=== PATIENT | female | born 1955 | race American Indian/Alaskan Native ===

== ENCOUNTER 2016-09-04 08:00 | Outpatient (CLI) | payer MEDICAID ==
--- NOTE | 2016-09-04 10:05 | Mammography Report ---
BILATERAL MAMMOGRAM with CAD: HISTORY:Cancer screening. Comparison study is dated September 02, 2015. FINDINGS: The breasts are almost entirely fat (<25% glandular). No mass, distortion, suspicious calcification, or skin change is seen. IMPRESSION: Negative mammogram. There is no mammographic evidence of malignancy. Stable bilateral benign calcifications are noted. RECOMMENDATION: Follow-up per ACS guidelines. BI-RADS CATEGORY: 1 = Negative ACR BI-RADS MAMMOGRAPHIC CODES: 0 = Needs additional imaging evaluation; 1 = Negative; 2 = Benign; 3 = Probably benign; 4 = Suspicious; 5 = Malignant; 6 = Known biopsy-proven malignancy COMMENT: 1. Dense breast tissue, i.e., adenosis, fibrocystic changes, etc., may obscure an underlying neoplasm. 2. Approximately 10% of cancers are not detected with mammography. 3. A negative mammography report should not delay biopsy if a clinically suspicious mass is present. COMMENT: Patient follow-up letters are generated in [employer].
== END 2016-09-04 08:01 | disposition home or self-care (01) ==
LOC: MAMMO 08:00
PROVIDERS: ATTEND Family Medicine
DX: Z12.31 Encounter for screening mammogram for malignant neoplasm of breast (principal)
CPT/HCPCS: 77067; G0202

== ENCOUNTER 2017-04-10 16:33 | Emergency (ER) | payer MEDICAID ==
--- NOTE | 2017-04-10 17:53 | XRay Report ---
FINAL REPORT EXAM: XR KNEE 3V LT HISTORY: pain/swelling/fall TECHNIQUE: Left knee three views PRIORS: None. FINDINGS: There is tricompartmental joint space narrowing. Calcified osteochondral bodies are present within the joint space. No evidence for joint effusion. Marginal distal femoral and tibial osteophytes are present. There osteophyte at the superior aspect of the patella. No acute fracture identified. No dislocation seen. 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
--- NOTE | 2017-04-10 22:37 | Emergency Department Report ---
HPI - General Chief Complaint: Extremity Injury, Lower Time Seen by Provider: 04/10/17 22:27 - HPI HPI: This is a 62 y o female who presents to the ED complaining of left knee pain 2 days. Patient states she has chronic left knee pain but is worsening in the past 2 days. Patient states she fell in the left knee Earlier Today and Caught Her Fall with the bed. Patient denies his head or any loss of consciousness. Physician says she is able to walk but pain with weightbearing on that left leg. She denies fever/chills/shortness of breath/chest pain/vomiting or abdominal pain ED Past Medical Hx - Past Medical History Hx Arthritis: Yes Hx Asthma: Yes Additional medical history: DVT. High Cholesterol - Surgical History Additional Surgical History: BKA R leg - Social History Smoking Status: Never Smoker Substance Use Type: None - Medications Home Medications: Home Medications Medication Instructions Recorded Confirmed Last Taken Type Simvastatin [Zocor TAB] 20 mg PO QHS 01/25/15 02/03/16 1 Day Ago History Warfarin [Coumadin] 7.5 mg PO QDAY 01/25/15 02/03/16 1 Day Ago History Cefuroxime [Ceftin] 250 mg PO Q12H #10 tablet 02/03/16 Unknown Rx Acetaminophen with Codeine 1 tab PO Q6HR PRN #6 tablet 04/10/17 Unknown Rx [Acetaminophen-Codeine #4 TAB] ED Review of Systems ROS: Stated complaint: LEFT KNEE PAIN Other details as noted in HPI Constitutional: denies: chills, fever Eyes: denies: eye pain, eye discharge, vision change ENT: denies: ear pain, throat pain Respiratory: denies: cough, shortness of breath, wheezing Cardiovascular: denies: chest pain, palpitations Endocrine: no symptoms reported Gastrointestinal: denies: abdominal pain, nausea, diarrhea Genitourinary: denies: urgency, dysuria, discharge Musculoskeletal: denies: back pain, joint swelling, arthralgia Skin: denies: rash, lesions Neurological: denies: headache, weakness, paresthesias Psychiatric: denies: anxiety, depression Hematological/Lymphatic: denies: easy bleeding, easy bruising Physical Exam - Physical Exam Vital Signs: Vital Signs 04/10/17 16:44 Temperature 98.3 F Pulse Rate 93 H Respiratory 16 Rate Blood Pressure 133/80 O2 Sat by Pulse 99 Oximetry Physical Exam: GENERAL: Alert and oriented x3, no apparent distress, Normal Gait, atraumatic. HEAD: Head is normocephalic and a-traumatic. LUNGS: Symetrical with respiration, No wheezing, no rales or crackles, CTAB. HEART: S1, S2 present, regular rate and rhythm without murmur, no rubs, no gallops. Non tender to palpation ABDOMEN: No organomegaly was noted,Positive bowel sounds, soft, and non- distended. . Nontender to palpation on all Quadrants, NO CVA tenderness. BACK: Full range of motion, no spinal tenderness, nontender to palpation. EXTREMITIES/MUSCULOSKELETAL: No cyanosis, clubbing, rash, lesions or edema. Full ROM bilaterally. LE Pulses 2+ bilaterally. LE 5+ strength, straight leg raise negative bilaterally. Demetrice sign negative, 1+ edema of the left ankle. Right leg prostatic NEUROLOGIC: The patient is cooperative with no focal neurologic deficits. Cranial nerves II through XII are grossly intact. Normal speech. Normal sensation in bilateral upper and lower extremities, PSYCHIATRIC: Mood is congruent with affect, denies suicidal or homicidal ideations. SKIN: Warm and dry, No lesions, No ulceration or induration present. ED Course Vital Signs 04/10/17 16:44 Temperature 98.3 F Pulse Rate 93 H Respiratory 16 Rate Blood Pressure 133/80 O2 Sat by Pulse 99 Oximetry ED Medical Decision Making - Radiology Data Radiology results: report reviewed FINAL REPORT EXAM: XR KNEE 3V LT HISTORY: pain/swelling/fall TECHNIQUE: Left knee three views PRIORS: None. FINDINGS: There is tricompartmental joint space narrowing. Calcified osteochondral bodies are present within the joint space. No evidence for joint effusion. Marginal distal femoral and tibial osteophytes are present. There osteophyte at the superior aspect of the patella. No acute fracture identified. No dislocation seen. 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 Transcribed By: MERCEDES Dictated By: JULI WESTBROOK MD Electronically Authenticated By: JULI WESTBROOK MD Signed Date/Time: 04/10/17 1351 - Medical Decision Making 62-year-old female with right arthritic knee pain. ED course: Patient received pain medication ED Discussed x-ray report with patient. X-ray report -reported as above Vital signs normal patient is in no acute distress. Discussed the patient will follow up with the primary care physician. Patient states she understands instructions given follow-up. Critical care attestation.: If time is entered above; I have spent that time in minutes in the direct care of this critically ill patient, excluding procedure time. ED Disposition Clinical Impression: Chronic knee pain Qualifiers: Laterality: left Qualified Code(s): M25.562 - Pain in left knee DJD (degenerative joint disease) of knee Qualifiers: Osteoarthritis type: unspecified Laterality: left Qualified Code(s): M17.12 - Unilateral primary osteoarthritis, left knee Disposition: - TO HOME OR SELFCARE Is pt being admited?: No Does the pt Need Aspirin: No Condition: Stable Instructions: Arthralgia (ED), Hinged Knee Brace (ED) Additional Instructions: f/u with your primary care physician. Prescriptions: Acetaminophen with Codeine [Acetaminophen-Codeine #4 TAB] 1 tab PO Q6HR PRN #6 tablet PRN Reason: Pain Referrals: ALDAIR NASH MD [Primary Care Provider] - 3-5 Days Forms: Work/School Release Form(ED) Time of Disposition: 23:25
[2017-04-10] MEDS ORDERED: NAPROSYN PO ONE (23:01)
[2017-04-11 00:58] VITALS: BP 138/91
== END 2017-04-11 00:56 | disposition home or self-care (01) ==
LOC: ED 16:33
DX: M17.12 Unilateral primary osteoarthritis, left knee (principal); M25.562 Pain in left knee; J45.909 Unspecified asthma, uncomplicated; E78.00 Pure hypercholesterolemia, unspecified; Z79.01 Long term (current) use of anticoagulants; Z88.8 Allergy status to other drugs, medicaments and biological substances
CPT/HCPCS: 99283

== ENCOUNTER 2017-08-05 10:27 | Outpatient (CLI) | payer MEDICAID ==
[2017-08-05 10:46] LABS: Hematocrit 41.1 % (30.3-42.9); Hemoglobin 13.8 gm/dl (10.1-14.3); Mean Corpuscular HGB Conc 34 % (30-34); Mean Corpuscular Hemoglobin 28 pg (28-32); Mean Corpuscular Volume 84 fl (79-97); Platelet Count 282 K/mm3 (140-440); Red Blood Count 4.89 M/mm3 (3.65-5.03); Red Cell Distribution Width 14.2 % (13.2-15.2)
[2017-08-05 10:55] LABS: INR 2.04 (0.87-1.13)
[2017-08-05 10:56] LABS: Partial Thromboplastin Time 46.8 Sec. (24.2-36.6)
[2017-08-05 11:16] LABS: Alanine Aminotransferase 13 units/L (7-56); Albumin 4.1 g/dL (3.9-5); BUN/Creatinine Ratio 18; Blood Urea Nitrogen 14 mg/dL (7-17); Calcium 9.2 mg/dL (8.4-10.2); Chol/HDL Ratio 2.83 %; HDL Cholesterol 54 mg/dL (40-59); Hemolysis Index 13; LDL Cholesterol,Direct 80 mg/dL (50-130)
== END 2017-08-05 10:28 | disposition home or self-care (01) ==
LOC: LAB 10:27
PROVIDERS: ATTEND Internal Medicine
DX: J45.901 Unspecified asthma with (acute) exacerbation (principal); Z79.01 Long term (current) use of anticoagulants; Z79.899 Other long term (current) drug therapy
CPT/HCPCS: 36415; 80053; 80061; 84436; 84443; 85027; 85610; 85730

== ENCOUNTER 2017-09-04 07:42 | Outpatient (CLI) | payer MEDICAID ==
--- NOTE | 2017-09-04 08:28 | Mammography Report ---
Bilateral mammogram: Compared to 09/02/15. CAD study utilized. Findings: Predominance it was tissue bilaterally. No mass or microcalcification. Benign axilla. Impression: Benign findings. Annual followup recommended. BI-RADS CATEGORY: 2 = Benign ACR BI-RADS MAMMOGRAPHIC CODES: 0 = Needs additional imaging evaluation; 1 = Negative; 2 = Benign; 3 = Probably benign; 4 = Suspicious; 5 = Malignant; 6 = Known biopsy-proven malignancy COMMENT: 1. Dense breast tissue, i.e., adenosis, fibrocystic changes, etc., may obscure an underlying neoplasm. 2. Approximately 10% of cancers are not detected with mammography. 3. A negative mammography report should not delay biopsy if a clinically suspicious mass is present. COMMENT: Patient follow-up letters are generated in [employer].
== END 2017-09-04 07:43 | disposition home or self-care (01) ==
LOC: MAMMO 07:42
PROVIDERS: ATTEND Physician Assistant
DX: Z12.31 Encounter for screening mammogram for malignant neoplasm of breast (principal)
CPT/HCPCS: 77067

== ENCOUNTER 2017-12-13 22:37 | Emergency (ER) | payer MEDICAID ==
[2017-12-14 03:19] LABS: Basophils % (Auto) 0.6 % (0.0-1.8); Eosinophils # (Auto) 0.3 K/mm3 (0.0-0.4); Eosinophils % (Auto) 5.8 % (0.0-4.3); Hematocrit 40.1 % (30.3-42.9); Hemoglobin 13.3 gm/dl (10.1-14.3); Lymphocytes # (Auto) 1.7 K/mm3 (1.2-5.4); Lymphocytes % (Auto) 30.3 % (13.4-35.0); Mean Corpuscular HGB Conc 33 % (30-34); Mean Corpuscular Hemoglobin 29 pg (28-32); Mean Corpuscular Volume 87 fl (79-97); Monocytes # (Auto) 0.5 K/mm3 (0.0-0.8); Monocytes % (Auto) 8.5 % (0.0-7.3); Platelet Count 282 K/mm3 (140-440); Red Blood Count 4.64 M/mm3 (3.65-5.03); Red Cell Distribution Width 14.2 % (13.2-15.2)
[2017-12-14 03:35] LABS: BUN/Creatinine Ratio 11; Blood Urea Nitrogen 9 mg/dL (7-17); Calcium 9.2 mg/dL (8.4-10.2); Hemolysis Index 5
[2017-12-14 03:37] LABS: INR 1.55 (0.87-1.13)
--- NOTE | 2017-12-14 09:55 | Emergency Department Report ---
ED General Adult HPI - General Chief complaint: Extremity Injury, Lower Stated complaint: SWELLING IN LEFT LEG Time Seen by Provider: 12/14/17 09:54 Source: patient, RN notes reviewed Mode of arrival: Ambulatory Limitations: No Limitations - History of Present Illness Initial comments: This is a 62-year-old female who is unknown to this provider previously, history of lower extremity DVT, currently on Coumadin, 7.5 mg daily, history of right lower extremity below-knee amputation. Presented to the ER with nontraumatic lower extremity left swelling, and some pressure. It is constant, does not radiate anywhere, and has no exacerbating or relieving factors. She denies headache, neck pain, chest pain, abdominal pain, shortness of breath. She denies dietary indiscretions and reports compliance with her anticoagulation. She reports that a few weeks ago, her Coumadin level was decreased to 5 mg daily for a few days, then increased to 7.5 mg daily. She denies chest pain, shortness of breath, recent travel, recent immobilization , recent surgery, recent . -: Gradual Location: left, lower extremity Radiation: non-radiation Improves with: none Worsens with: none Associated Symptoms: other (as per history of present illness). denies: confusion, chest pain, cough, diaphoresis, fever/chills, headaches, loss of appetite, malaise, nausea/vomiting, rash, seizure, shortness of breath, syncope , weakness - Related Data Home Medications Medication Instructions Recorded Confirmed Last Taken Warfarin [Coumadin] 7.5 mg PO QDAY 01/25/15 12/14/17 1 Day Ago ~12/25/15 Allergies Allergy/AdvReac Type Severity Reaction Status Date / Time heparin Allergy Unknown Verified 09/04/16 08:01 ED Review of Systems ROS: Stated complaint: SWELLING IN LEFT LEG Other details as noted in HPI Comment: All other systems reviewed and negative ED Past Medical Hx - Past Medical History Hx Arthritis: Yes Hx Asthma: Yes Additional medical history: DVT. High Cholesterol - Surgical History Additional Surgical History: BKA R leg, Hysterectomy - Social History Smoking Status: Never Smoker Substance Use Type: None - Medications Home Medications: Home Medications Medication Instructions Recorded Confirmed Last Taken Type Warfarin [Coumadin] 7.5 mg PO QDAY 01/25/15 12/14/17 1 Day Ago History ~12/25/15 ED Physical Exam - General Limitations: No Limitations General appearance: alert, in no apparent distress - Head Head exam: Present: atraumatic, normocephalic - Eye Eye exam: Present: normal appearance, EOMI. Absent: nystagmus - ENT ENT exam: Present: normal exam, normal orophraynx, mucous membranes moist, normal external ear exam - Neck Neck exam: Present: normal inspection, full ROM - Respiratory Respiratory exam: Present: normal lung sounds bilaterally. Absent: respiratory distress - Cardiovascular Cardiovascular Exam: Present: regular rate, normal rhythm, normal heart sounds. Absent: bradycardia, tachycardia, irregular rhythm, systolic murmur, diastolic murmur, rubs, gallop - GI/Abdominal GI/Abdominal exam: Present: soft, normal bowel sounds. Absent: distended, tenderness, guarding, rebound, rigid, pulsatile mass - Extremities Exam Extremities exam: Present: normal inspection, normal capillary refill, pedal edema, other (status post right lower extremity below-knee amputation. 2+ pulses noted in the left lower extremity. 1+ edema noted in the left lower extremity. Compartments soft. There is no palpable cord.). Absent: calf tenderness - Back Exam Back exam: Present: normal inspection, full ROM. Absent: paraspinal tenderness , vertebral tenderness - Neurological Exam Neurological exam: Present: alert, oriented X3, CN II-XII intact, normal gait, other (Extraocular movements intact. Tongue midline. No facial droop. Facial sensation intact to light touch in the V1, V2, V3 distribution bilaterally. 5 and 5 strength in 4 extremities.. Sensation is intact to light touch in 4 extremities.). Absent: motor sensory deficit - Psychiatric Psychiatric exam: Present: normal affect, normal mood - Skin Skin exam: Present: warm, dry, intact, normal color. Absent: rash ED Course Vital Signs 12/14/17 12/14/17 02:13 08:01 Temperature 98.4 F Pulse Rate 71 Respiratory 20 18 Rate Blood Pressure 129/77 O2 Sat by Pulse 98 Oximetry ED Medical Decision Making - Lab Data Result diagrams: 12/14/17 02:38 12/14/17 02:38 Vital Signs 12/14/17 12/14/17 02:13 08:01 Temperature 98.4 F Pulse Rate 71 Respiratory 20 18 Rate Blood Pressure 129/77 O2 Sat by Pulse 98 Oximetry Lab Results 12/14/17 12/14/17 12/14/17 Range/Units 02:38 02:38 02:38 WBC 5.7 (4.5-11.0) K/mm3 RBC 4.64 (3.65-5.03) M/mm3 Hgb 13.3 (10.1-14.3) gm/dl Hct 40.1 (30.3-42.9) % MCV 87 (79-97) fl MCH 29 (28-32) pg MCHC 33 (30-34) % RDW 14.2 (13.2-15.2) % Plt Count 282 (140-440) K/mm3 Lymph % (Auto) 30.3 (13.4-35.0) % [place] % (Auto) 8.5 H (0.0-7.3) % Eos % (Auto) 5.8 H (0.0-4.3) % Baso % (Auto) 0.6 (0.0-1.8) % Lymph # 1.7 (1.2-5.4) K/mm3 [place] # 0.5 (0.0-0.8) K/mm3 Eos # 0.3 (0.0-0.4) K/mm3 Baso # 0.0 (0.0-0.1) K/mm3 Seg Neutrophils % 54.8 (40.0-70.0) % Seg Neutrophils # 3.1 (1.8-7.7) K/mm3 PT 19.5 H (12.2-14.9) Sec. INR 1.55 H (0.87-1.13) APTT 37.0 H (24.2-36.6) Sec. Sodium 144 (137-145) mmol/L Potassium 3.9 (3.6-5.0) mmol/L Chloride 103.8 (98-107) mmol/L Carbon Dioxide 28 (22-30) mmol/L Anion Gap 16 mmol/L BUN 9 (7-17) mg/dL Creatinine 0.8 (0.7-1.2) mg/dL Estimated GFR > 60 ml/min BUN/Creatinine Ratio 11 % Glucose 95 (65-100) mg/dL Calcium 9.2 (8.4-10.2) mg/dL - Radiology Data Radiology results: report reviewed, image reviewed LIVE [facility] Female : 1955 [facility]# [id number] 12/14/17 09:45 - Radiology Dept. Note by WILLIAN COON [facility] Num: [id number] : 1955 Patient Age: 62 VASCULAR LAB.PRELIMINARY REPORT. LLE VENOUS DUPLEX DONE. NO EVIDENCE OF DVT/SVT IN VESSELS VISUALIZED. Initialized on 12/14/17 09:45 - END OF NOTE - Medical Decision Making Differential diagnosis, including but not limited to: DVT, dependent edema, Casper's cysts Assessment and plan: 62-year-old female with painless left lower extremity swelling, therapeutic INR, no evidence of compartment syndrome or arterial insufficiency, physical exam unremarkable, DVT study is negative, laboratory studies unremarkable with the exception of slightly subtherapeutic INR. Patient 's Coumadin will be increased to 10 mg daily for the next 3 days, and then she' ll be instructed to follow-up with her outpatient primary care doctor for INR recheck. Critical care attestation.: If time is entered above; I have spent that time in minutes in the direct care of this critically ill patient, excluding procedure time. ED Disposition Clinical Impression: Subtherapeutic international normalized ratio (INR), Left leg swelling Disposition: DC-01 TO HOME OR SELFCARE Is pt being admited?: No Does the pt Need Aspirin: No Condition: Stable Instructions: Elevated INR (ED) Additional Instructions: Increase Coumadin to 10 mg daily for the next 3 days. Then resume 7.5 mg daily. Follow-up with your primary care doctor within the next 3-5 days for INR recheck. Return to the ER right away with new pain, worsened pain, migration of pain, fevers, chills, lethargy, irritability, projectile vomiting, change in mental status, confusion, inability to tolerate liquid feeds. Referrals: PRIMARY CARE, [Primary Care Provider] - 3-5 Days [facility] [Provider Group] - 3-5 Days
[2017-12-14 11:23] VITALS: BP 121/68
== END 2017-12-14 11:22 | disposition home or self-care (01) ==
LOC: ED 22:37
DX: M79.89 Other specified soft tissue disorders (principal); R79.1 Abnormal coagulation profile; J45.909 Unspecified asthma, uncomplicated
CPT/HCPCS: 36415; 80048; 85025; 85610; 85730

== ENCOUNTER 2018-09-10 08:52 | Outpatient (CLI) | payer MEDICAID ==
--- NOTE | 2018-09-10 12:44 | Mammography Report ---
BILATERAL DIGITAL SCREENING MAMMOGRAM with CAD: 09/10/18 08:52:00 CLINICAL: Routine screening. COMPARISON:09/04/17 FINDINGS: The breasts are almost entirely fatty. A left outer asymmetry identified only on an exaggerated CC view requires additional imaging.No architectural distortion or suspicious calcifications.The right breast is negative. IMPRESSION: Left asymmetry requiring further workup. BI-RADS CATEGORY: 0 -- Additional Imaging Evaluation Required RECOMMENDATION: Recall for a left exaggerated CC spot compression view and left breast ultrasound if needed. ACR BI-RADS MAMMOGRAPHIC CODES: 0 = Needs additional imaging evaluation; 1 = Negative; 2 = Benign; 3 = Probably benign; 4 = Suspicious; 5 = Malignant; 6 = Known biopsy-proven malignancy COMMENT: 1. Dense breast tissue, i.e., adenosis, fibrocystic changes, etc., may obscure an underlying neoplasm. 2. Approximately 10% of cancers are not detected with mammography. 3. A negative mammography report should not delay biopsy if a clinically suspicious mass is present. COMMENT: Patient follow-up letters are generated via our [employer] application.
== END 2018-09-10 08:53 | disposition home or self-care (01) ==
LOC: MAMMO 08:52
PROVIDERS: ATTEND Physician Assistant
DX: Z12.31 Encounter for screening mammogram for malignant neoplasm of breast (principal); J45.909 Unspecified asthma, uncomplicated; Z90.710 Acquired absence of both cervix and uterus; M19.90 Unspecified osteoarthritis, unspecified site
CPT/HCPCS: 77067

== ENCOUNTER 2018-10-23 10:17 | Outpatient (CLI) | payer MEDICAID ==
--- NOTE | 2018-10-23 12:31 | Mammography Report ---
Spot compression and sonographic exam of ill-defined density lower left axilla: Findings: There is persistence of ill-defined density interspersed with adipose tissue noted lower left axilla. No calcifications seen. Measures approximately 2.3 cm in diameter. Sonographic examination reveals mixed echogenic density with central adipose tissue without color flow at lower left axilla at 10 cm from nipple at the approximate 1:00 position measuring 1.3 cm in maximum diameter. Impression: Probably benign density predominantly containing adipose tissue. May be a benign lymph node or a benign nodule. Six-month followup with left mammogram and sonogram recommended. BI-RADS CATEGORY: 3 = Probably benign ACR BI-RADS MAMMOGRAPHIC CODES: 0 = Needs additional imaging evaluation; 1 = Negative; 2 = Benign; 3 = Probably benign; 4 = Suspicious; 5 = Malignant; 6 = Known biopsy-proven malignancy COMMENT: 1. Dense breast tissue, i.e., adenosis, fibrocystic changes, etc., may obscure an underlying neoplasm. 2. Approximately 10% of cancers are not detected with mammography. 3. A negative mammography report should not delay biopsy if a clinically suspicious mass is present.
== END 2018-10-23 10:18 | disposition home or self-care (01) ==
LOC: MAMMO 10:17
PROVIDERS: ATTEND Student in an Organized Health Care Education/Training Program
DX: R92.2 Inconclusive mammogram (principal); J45.909 Unspecified asthma, uncomplicated; M19.90 Unspecified osteoarthritis, unspecified site; Z90.710 Acquired absence of both cervix and uterus